=== PATIENT | female | born 1950 | race Caucasian/White ===

== ENCOUNTER 2018-11-12 13:58 | Inpatient (IN) | payer MEDICARE, OTHER ==
[2018-11-12 14:33] LABS: CHLORIDE,CL 104 mEq/L (98-106); SODIUM,NA 140 mEq/L (136-145)
[2018-11-12] MEDS ORDERED: Ondansetron 4 MG/2 ML SDV IV PRN (15:55)
[2018-11-12] MEDS ORDERED: Temazepam 15 MG Cap PO PRN (15:55)
[2018-11-12] MEDS ORDERED: Ibuprofen 200 MG Tab PO PRN (15:55)
[2018-11-12] MEDS ORDERED: ALPRAZolam 0.25 MG Tab PO PRN (15:58)
[2018-11-12] MEDS: Pantoprazole 40 MG Vial IVPUSH SCH (16:28)
[2018-11-12] MEDS: cefTRIAXone 1 GM Vial IVPUSH SCH (16:28)
[2018-11-12] MEDS: Enoxaparin 40 MG/0.4 ML Syringe SUBCUT SCH (16:29)
[2018-11-12] MEDS: Sodium Chloride 0.9% 1,000 ML IV SCH (16:32)
[2018-11-12] MEDS: amLODIPine 2.5 MG Tab PO SCH (20:06)
[2018-11-12] MEDS: Gabapentin 300 MG Cap PO SCH (20:07)
[2018-11-13] MEDS: Sodium Chloride 0.9% 1,000 ML IV SCH ×4 (00:33→23:52)
[2018-11-13] MEDS: Gabapentin 300 MG Cap PO SCH ×3 (07:57→19:57)
[2018-11-13] MEDS: Citalopram 10 MG Tab PO SCH (07:57)
[2018-11-13] MEDS: Pantoprazole 40 MG Vial IVPUSH SCH ×2 (07:59→19:56)
[2018-11-13] MEDS ORDERED: Acetaminophen 325 MG Tab PO PRN (08:25)
[2018-11-13] MEDS: cefTRIAXone 1 GM Vial IVPUSH SCH (15:44)
[2018-11-13] MEDS: Enoxaparin 40 MG/0.4 ML Syringe SUBCUT SCH (15:48)
[2018-11-13] MEDS: amLODIPine 2.5 MG Tab PO SCH (19:57)
--- NOTE | 2018-11-13 20:55 | PCM.PN ---
- General Info Date of Service: 11/13/18 Admission Dx/Problem (Free Text): Pyelonephritis Elevated liver enzymes Functional Status: Reports: Pain Controlled, Tolerating Diet, Ambulating, Urinating (admits to less burning with urination this am. Does continue to have generalized malaise and achiness) - Review of Systems General: Reports: Fever, Weakness, Fatigue, Malaise HEENT: Reports: No Symptoms Pulmonary: Denies: Shortness of Breath, Cough Cardiovascular: Denies: Chest Pain, Edema, Lightheadedness Gastrointestinal: Reports: Difficulty Swallowing, Nausea. Denies: Vomiting Genitourinary: Reports: Frequency, Burning Musculoskeletal: Reports: Back Pain Skin: Reports: No Symptoms Neurological: Reports: Weakness - Patient Data Vitals - Most Recent: Last Vital Signs Temp 98.8 F 11/13/18 20:00 Pulse 76 11/13/18 20:00 Resp 20 11/13/18 20:00 BP 123/61 11/13/18 20:00 Pulse Ox 98 11/13/18 20:00 Weight - Most Recent: 258 lb 12.8 oz I&O - Last 24 Hours: Intake & Output 11/13/18 11/13/18 11/13/18 06:59 14:59 22:59 Intake Total 1000 1000 910 Balance 1000 1000 910 Lab Results Last 24 Hours: Laboratory Results - last 24 hr 11/13/18 11/13/18 Range/Units 07:40 07:40 WBC 4.3 L (5.0-10.0) 10^3/uL RBC 3.17 L (4.00-5.50) 10^6/uL Hgb 9.5 L (12.0-16.0) g/dL Hct 29.9 L (37.0-47.0) % MCV 94.3 H (82.0-94.0) fL MCH 30.0 (27.0-32.0) pg MCHC 31.8 L (33.0-38.0) g/dL RDW Coeff of Ivis 12.8 (11.0-15.0) % Plt Count 254 (150-400) 10^3/uL Neut % (Auto) 64.6 (35-85) % Lymph % (Auto) 17.7 (10-55) % [place] % (Auto) 16.0 (0-16) % Eos % (Auto) 1.2 (0-5) % Baso % (Auto) 0.5 (0-3) % Neut # (Auto) 2.78 (1.80-7.00) 10^3/uL Lymph # (Auto) 0.76 L (1.00-4.80) 10^3/uL [place] # (Auto) 0.69 (0.00-0.80) 10^3/uL Eos # (Auto) 0.05 (0.00-0.45) 10^3/uL Baso # (Auto) 0.02 10^3/uL Sodium 144 (136-145) mEq/L Potassium 3.8 (3.5-5.0) mEq/L Chloride 109 H (98-106) mEq/L Carbon Dioxide 24 (21-32) mmol/L BUN 14 (7-18) mg/dL Creatinine 1.1 H (0.6-1.0) mg/dL Est Cr Clr Drug Dosing 48.26 mL/min Estimated GFR (MDRD) 50 L (>=60) mL/min Glucose 105 H (75-99) mg/dL Calcium 8.6 (8.4-10.1) mg/dL C-Reactive Protein 18.0 H (0.2-0.8) mg/dL [place] Results Last 24 Hours: Microbiology 11/12/18 16:08 Urine Culture - Preliminary Urine, Clean Catch Gram Negative Rods Med Orders - Current: Current Medications Acetaminophen (Tylenol) 650 mg PO Q4H PRN PRN Reason: Fever Alprazolam (Xanax) 0.25 mg PO Q6H PRN PRN Reason: Anxiety Amlodipine Besylate (Norvasc) 5 mg PO BEDTIME [facility] Last Admin: 11/13/18 19:57 Dose: 5 mg Ceftriaxone Sodium (Rocephin) 1 gm IVPUSH 1600 [facility] Last Admin: 11/13/18 15:44 Dose: 1 gm Citalopram Hydrobromide (Celexa) 20 mg PO DAILY [facility] Last Admin: 11/13/18 07:57 Dose: 20 mg Enoxaparin Sodium (Lovenox) 40 mg SUBCUT 1600 [facility] Last Admin: 11/13/18 15:48 Dose: 40 mg Gabapentin (Neurontin) 300 mg PO TID [facility] Last Admin: 11/13/18 19:57 Dose: 300 mg Sodium Chloride (Normal Saline) 1,000 mls @ 125 mls/hr IV ASDIRECTED [facility] Last Admin: 11/13/18 15:55 Dose: 125 mls/hr Ibuprofen (Motrin) 400 mg PO Q6H PRN PRN Reason: Pain (mild 1-3) Ondansetron HCl (Zofran) 8 mg IV Q6H PRN PRN Reason: Nausea/Vomiting Pantoprazole Sodium (Protonix Iv) 40 mg IVPUSH 799,1999 [facility] Last Admin: 11/13/18 19:56 Dose: 40 mg Temazepam (Restoril) 15 mg PO BEDTIME PRN PRN Reason: Sleep - Exam General: Alert, Oriented HEENT: Mucous Membr. Moist/[place] Neck: Supple Lungs: Clear to Auscultation, Normal Respiratory Effort Cardiovascular: Regular Rate, Regular Rhythm GI/Abdominal Exam: Normal Bowel Sounds, Soft, Tender (tender to bilateral lower quadrants) Extremities: Normal Inspection, No Pedal Edema Skin: Warm, Dry Neurological: No New Focal Deficit - Problem List & Annotations (1) Pyelonephritis SNOMED Code(s): 97272726 Code(s): N12 - TUBULO-INTERSTITIAL NEPHRITIS, NOT SPCF ACUTE OR CHRONIC Status: Acute Priority: High Current Visit: Yes (2) Elevated liver enzymes SNOMED Code(s): 465445172 Code(s): R74.8 - ABNORMAL LEVELS OF OTHER SERUM ENZYMES Status: Acute Priority: High Current Visit: Yes - Problem List Review Problem List Initiated/Reviewed/Updated: Yes - My Orders Last 24 Hours: My Active Orders 11/13/18 08:25 Acetaminophen [Tylenol] 650 mg PO Q4H PRN - Assessment Assessment:: Pyelonephritis Elevated liver enzymes - Plan Plan:: Patient admits to feeling somewhat better this am. Notes less burning with urination, not voiding as frequently. Still feels general body aches and stiffness. Mild abdominal discomfort this am, intermittent nausea. Afebrile. WBC 4.3 this am, CRP improved to 18. Initial urine culture shows gram negative rods. Continue IV fluids. Rocephin. Tylenol for generalized malaise as patient notes ibuprofen irritates her stomach. Reevaluate labs in am.
[2018-11-14] MEDS: Pantoprazole 40 MG Vial IVPUSH SCH ×2 (07:28→20:13)
[2018-11-14] MEDS: Gabapentin 300 MG Cap PO SCH ×3 (07:29→20:12)
[2018-11-14] MEDS: Citalopram 10 MG Tab PO SCH (07:29)
[2018-11-14] MEDS: Sodium Chloride 0.9% 1,000 ML IV SCH (07:33)
[2018-11-14] MEDS ORDERED: Sodium Chloride 0.9% 1,000 ML IV SCH (09:28)
--- NOTE | 2018-11-14 13:39 | PCM.PN ---
- General Info Date of Service: 11/14/18 Admission Dx/Problem (Free Text): Pyelonephritis Elevated liver enzymes Subjective Update: Kendal is a 68 year old female who was admitted to the hospital 11/12/2017 with elevated liver enzymes and pyelnephritis. She reports she is feeling much better today. Does continue to feel fatigued and weak. Has been afebrile. Denies any flank pain. Reports overall, feels she is improving. Functional Status: Reports: Pain Controlled, Tolerating Diet, Ambulating, Urinating. Denies: New Symptoms - Review of Systems General: Reports: Weakness. Denies: Fever, Chills Pulmonary: Reports: No Symptoms Cardiovascular: Reports: No Symptoms Gastrointestinal: Denies: Abdominal Pain, Constipation, Diarrhea, Nausea, Vomiting Genitourinary: Denies: Dysuria, Frequency, Burning, Hematuria, Flank Pain Musculoskeletal: Denies: Back Pain Skin: Reports: No Symptoms Neurological: Reports: No Symptoms Psychiatric: Reports: No Symptoms - Patient Data Vitals - Most Recent: Last Vital Signs Temp 97.2 F 11/14/18 11:54 Pulse 60 11/14/18 11:54 Resp 20 11/14/18 11:54 BP 131/58 L 11/14/18 11:54 Pulse Ox 97 11/14/18 11:54 Weight - Most Recent: 258 lb 12.8 oz I&O - Last 24 Hours: Intake & Output 11/13/18 11/14/18 11/14/18 22:59 06:59 14:59 Intake Total 910 994 960 Balance 910 994 960 Lab Results Last 24 Hours: Laboratory Results - last 24 hr 11/14/18 11/14/18 Range/Units 05:11 05:11 WBC 4.2 L (5.0-10.0) 10^3/uL RBC 3.27 L (4.00-5.50) 10^6/uL Hgb 9.9 L (12.0-16.0) g/dL Hct 31.3 L (37.0-47.0) % MCV 95.7 H (82.0-94.0) fL MCH 30.3 (27.0-32.0) pg MCHC 31.6 L (33.0-38.0) g/dL RDW Coeff of Ivis 13.1 (11.0-15.0) % Plt Count 296 (150-400) 10^3/uL Neut % (Auto) 66.1 (35-85) % Lymph % (Auto) 20.7 (10-55) % [place] % (Auto) 11.1 (0-16) % Eos % (Auto) 1.9 (0-5) % Baso % (Auto) 0.2 (0-3) % Neut # (Auto) 2.74 (1.80-7.00) 10^3/uL Lymph # (Auto) 0.86 L (1.00-4.80) 10^3/uL [place] # (Auto) 0.46 (0.00-0.80) 10^3/uL Eos # (Auto) 0.08 (0.00-0.45) 10^3/uL Baso # (Auto) 0.01 10^3/uL Sodium 145 (136-145) mEq/L Potassium 4.0 (3.5-5.0) mEq/L Chloride 108 H (98-106) mEq/L Carbon Dioxide 27 (21-32) mmol/L BUN 14 (7-18) mg/dL Creatinine 1.0 (0.6-1.0) mg/dL Est Cr Clr Drug Dosing 53.09 mL/min Estimated GFR (MDRD) 55 L (>=60) mL/min Glucose 102 H (75-99) mg/dL Calcium 8.6 (8.4-10.1) mg/dL Total Bilirubin 0.2 (0.0-1.0) mg/dL AST 31 (15-37) U/L ALT 84 H (12-78) U/L Alkaline Phosphatase 133 H (46-116) U/L C-Reactive Protein 16.0 H (0.2-0.8) mg/dL Total Protein 6.9 (6.4-8.2) g/dL Albumin 2.5 L (3.4-5.0) g/dL [place] Results Last 24 Hours: Microbiology 11/12/18 16:08 Urine Culture - Final Urine, Clean Catch Escherichia Coli Med Orders - Current: Current Medications Acetaminophen (Tylenol) 650 mg PO Q4H PRN PRN Reason: Fever Last Admin: 11/13/18 23:15 Dose: 650 mg Alprazolam (Xanax) 0.25 mg PO Q6H PRN PRN Reason: Anxiety Last Admin: 11/14/18 10:36 Dose: 0.25 mg Amlodipine Besylate (Norvasc) 5 mg PO BEDTIME [facility] Last Admin: 11/13/18 19:57 Dose: 5 mg Ceftriaxone Sodium (Rocephin) 1 gm IVPUSH 1600 [facility] Last Admin: 11/13/18 15:44 Dose: 1 gm Citalopram Hydrobromide (Celexa) 20 mg PO DAILY [facility] Last Admin: 11/14/18 07:29 Dose: 20 mg Enoxaparin Sodium (Lovenox) 40 mg SUBCUT 1600 [facility] Last Admin: 11/13/18 15:48 Dose: 40 mg Gabapentin (Neurontin) 300 mg PO TID [facility] Last Admin: 11/14/18 07:29 Dose: 300 mg Sodium Chloride (Normal Saline) 1,000 mls @ 70 mls/hr IV ASDIRECTED [facility] Ibuprofen (Motrin) 400 mg PO Q6H PRN PRN Reason: Pain (mild 1-3) Ondansetron HCl (Zofran) 8 mg IV Q6H PRN PRN Reason: Nausea/Vomiting Pantoprazole Sodium (Protonix Iv) 40 mg IVPUSH 0800,2000 [facility] Last Admin: 11/14/18 07:28 Dose: 40 mg Temazepam (Restoril) 15 mg PO BEDTIME PRN PRN Reason: Sleep Discontinued Medications Sodium Chloride (Normal Saline) 1,000 mls @ 125 mls/hr IV ASDIRECTED [facility] Last Admin: 11/14/18 07:33 Dose: 125 mls/hr - Exam General: Alert, Oriented, No Acute Distress Lungs: Clear to Auscultation, Normal Respiratory Effort Cardiovascular: Regular Rate, Regular Rhythm GI/Abdominal Exam: Normal Bowel Sounds, Soft, Non-Tender, No Organomegaly, No Distention, No Abnormal Bruit, No Mass, Pelvis Stable Back Exam: Normal Inspection, Full Range of Motion. No: CVA Tenderness (L), CVA Tenderness (R) Extremities: Normal Inspection, Normal Range of Motion, Non-Tender, No Pedal Edema, Normal Capillary Refill Neurological: No New Focal Deficit Psy/Mental Status: Alert, Normal Affect, Normal Mood - Problem List & Annotations (1) Elevated liver enzymes SNOMED Code(s): 273577904 Code(s): R74.8 - ABNORMAL LEVELS OF OTHER SERUM ENZYMES Status: Acute Priority: High Current Visit: Yes (2) Pyelonephritis SNOMED Code(s): 73081404 Code(s): N12 - TUBULO-INTERSTITIAL NEPHRITIS, NOT SPCF ACUTE OR CHRONIC Status: Acute Priority: High Current Visit: Yes - Problem List Review Problem List Initiated/Reviewed/Updated: Yes - My Orders Last 24 Hours: My Active Orders 11/14/18 09:28 Sodium Chloride 0.9% [Normal Saline] 1,000 ml IV ASDIRECTED - Assessment Assessment:: Pyelonephritis Elevated liver enzymes - Plan Plan:: Continue IV fluids. Decrease rate to 70 mL/hr. Continue IV Rocephin. Final urine culture shows e coli with sensitivity to Rocephin. Reevaluate labs in am. Labs improving. Creat 1.0. CRP continues to decline from 24 on admit to 16 today. Anticipate discharge home tomorrow on oral antibiotics.
[2018-11-14] MEDS: cefTRIAXone 1 GM Vial IVPUSH SCH (16:01)
[2018-11-14] MEDS: Enoxaparin 40 MG/0.4 ML Syringe SUBCUT SCH (16:04)
[2018-11-14] MEDS: amLODIPine 2.5 MG Tab PO SCH (20:13)
[2018-11-15] MEDS: Pantoprazole 40 MG Vial IVPUSH SCH (07:49)
[2018-11-15] MEDS: Citalopram 10 MG Tab PO SCH (07:49)
[2018-11-15] MEDS: Gabapentin 300 MG Cap PO SCH ×2 (07:49→14:09)
[2018-11-15] MEDS ORDERED: cefTRIAXone 1 GM Vial IVPUSH SCH (13:00)
--- NOTE | 2018-11-15 13:38 | PCM.DCSUM1 ---
Discharge Summary - Hospital Course Free Text/Narrative:: Kendal is a pleasant 68 year old female who was admitted to the hospital 2018 for pyelonephritis and elevated liver enzymes. Throughout hospitalization patients malaise and dysuria improved greatly. At time of discharge she had no complaints. Reports back pain and burning with urination were gone. Lab work throughout hospitalization imrpoved. Creatinine elevated to 1.3 at time of admit. Improved to 1.0 at time of discharge. GFR improved from 41 at admit to 55 at discharge. WBC remained normal throughout stay, 5.6 on admit, 4.2 on discharge. CRP was elevated on admit to 24. Gradually decreased during hospitalization to 9.3 at time of discharge. Her urine analysis was positive with culture confirming ecoli. Sensitivity to Rocephin. She was treated with 1 G Rocephin daily x 4 doses. She will be discharged home on Ceftin 250 mg BID x 5 additional days. Her liver enzymes also normalized throughout stay. AST elevated at 72 on admit and normalized to 25 on discharge. ALT elevated to 109 on admit and 68 on discharge. Alk phos elevated to 156 and decreased to 118 at time of discharge. SHe is discharged home in satisfactory condition. She is advised to follow up with per PCP as needed and oncology as scheduled in the upcoming week. She was discharged from the facility in satisfactory condition. Diagnosis: Stroke: No - Discharge Data Discharge Date: 11/15/18 Discharge Disposition: Home, Self-Care 01 Condition: Good - Discharge Diagnosis/Problem(s) (1) Elevated liver enzymes SNOMED Code(s): 890302152 ICD Code: R74.8 - ABNORMAL LEVELS OF OTHER SERUM ENZYMES Status: Acute Priority: High (2) Pyelonephritis SNOMED Code(s): 53634099 ICD Code: N12 - TUBULO-INTERSTITIAL NEPHRITIS, NOT SPCF ACUTE OR CHRONIC Status: Acute Priority: High - Patient Instructions Diet: Usual Diet as Tolerated Activity: As Tolerated Notify Provider of: Fever, Increased Pain, Nausea and/or Vomiting - Discharge Plan *PRESCRIPTION DRUG MONITORING PROGRAM REVIEWED*: Not Applicable *COPY OF PRESCRIPTION DRUG MONITORING REPORT IN PATIENT ABDIEL: Not Applicable Prescriptions/Med Rec: Cefuroxime [Ceftin] 250 mg PO BID 5 Days #10 tab Home Medications: Home Meds ALPRAZolam [Alprazolam] 0.25 mg PO Q6H PRN 12/01/17 [History] Acetaminophen [Tylenol Extra Strength] 500 - 1,000 mg PO Q6H PRN 12/01/17 [ History] Citalopram [Citalopram HBr] 20 mg PO DAILY 12/01/17 [History] Cetirizine [ZyrTEC] 10 mg PO DAILY PRN 12/22/17 [History] amLODIPine Besylate [Amlodipine Besylate] 5 mg PO BEDTIME 01/02/18 [History] Gabapentin [Neurontin] 300 mg PO TID 10/22/18 [History] Ibuprofen 200 - 400 mg PO Q6H PRN 10/22/18 [History] diphenhydrAMINE [Benadryl] 25 mg PO BID PRN 10/22/18 [History] Omeprazole Magnesium [Prilosec Otc] 20 mg PO DAILY 10/23/18 [History] Cefuroxime [Ceftin] 250 mg PO BID 5 Days #10 tab 11/15/18 [Rx] Patient Handouts: Pyelonephritis, Adult - Discharge Summary/Plan Comment DC Time >30 min.: No - General Info Date of Service: 11/15/18 Admission Dx/Problem (Free Text: Pyelonephritis Elevated liver enzymes Subjective Update: At time of discharge patient reports she is feeling much better. SHe offers no complaints. Reports no further urinary symptoms. Has not had any additional back pain. Functional Status: Reports: Pain Controlled, Tolerating Diet. Denies: New Symptoms - Review of Systems General: Reports: No Symptoms. Denies: Fever, Weakness, Fatigue, Chills Pulmonary: Reports: No Symptoms Cardiovascular: Reports: No Symptoms Gastrointestinal: Reports: No Symptoms. Denies: Abdominal Pain, Constipation, Decreased Appetite, Diarrhea, Nausea, Vomiting Genitourinary: Reports: No Symptoms. Denies: Dysuria, Frequency, Burning, Urgency, Incontinence, Hematuria, Flank Pain Musculoskeletal: Denies: Back Pain Skin: Reports: No Symptoms Neurological: Reports: No Symptoms Psychiatric: Reports: No Symptoms - Patient Data Vitals - Most Recent: Last Vital Signs Temp 97.7 F 11/15/18 12:00 Pulse 64 11/15/18 12:00 Resp 20 11/15/18 12:00 BP 135/67 11/15/18 12:00 Pulse Ox 97 11/15/18 12:00 Weight - Most Recent: 258 lb 12.8 oz Lab Results - Last 24 hrs: Laboratory Results - last 24 hr 11/15/18 Range/Units 05:11 Sodium 144 (136-145) mEq/L Potassium 4.0 (3.5-5.0) mEq/L Chloride 107 H (98-106) mEq/L Carbon Dioxide 28 (21-32) mmol/L BUN 17 (7-18) mg/dL Creatinine 1.0 (0.6-1.0) mg/dL Est Cr Clr Drug Dosing 53.09 mL/min Estimated GFR (MDRD) 55 L (>=60) mL/min Glucose 105 H (75-99) mg/dL Calcium 8.5 (8.4-10.1) mg/dL Total Bilirubin 0.2 (0.0-1.0) mg/dL AST 25 (15-37) U/L ALT 68 (12-78) U/L Alkaline Phosphatase 118 H (46-116) U/L C-Reactive Protein 9.3 H (0.2-0.8) mg/dL Total Protein 6.6 (6.4-8.2) g/dL Albumin 2.5 L (3.4-5.0) g/dL DON Results - Last 24 hrs: Microbiology 11/12/18 16:08 Urine Culture - Final Urine, Clean Catch Escherichia Coli Med Orders - Current: Current Medications Acetaminophen (Tylenol) 650 mg PO Q4H PRN PRN Reason: Fever Last Admin: 11/13/18 23:15 Dose: 650 mg Alprazolam (Xanax) 0.25 mg PO Q6H PRN PRN Reason: Anxiety Last Admin: 11/14/18 10:36 Dose: 0.25 mg Amlodipine Besylate (Norvasc) 5 mg PO BEDTIME [facility] Last Admin: 11/14/18 20:13 Dose: 5 mg Ceftriaxone Sodium (Rocephin) 1 gm IVPUSH 1600 [facility] Last Admin: 11/15/18 12:19 Dose: 1 gm Citalopram Hydrobromide (Celexa) 20 mg PO DAILY [facility] Last Admin: 11/15/18 07:49 Dose: 20 mg Enoxaparin Sodium (Lovenox) 40 mg SUBCUT 1600 [facility] Last Admin: 11/14/18 16:04 Dose: 40 mg Gabapentin (Neurontin) 300 mg PO TID [facility] Last Admin: 11/15/18 07:49 Dose: 300 mg Ibuprofen (Motrin) 400 mg PO Q6H PRN PRN Reason: Pain (mild 1-3) Ondansetron HCl (Zofran) 8 mg IV Q6H PRN PRN Reason: Nausea/Vomiting Pantoprazole Sodium (Protonix Iv) 40 mg IVPUSH 0800,2000 [facility] Last Admin: 11/15/18 07:49 Dose: 40 mg Temazepam (Restoril) 15 mg PO BEDTIME PRN PRN Reason: Sleep Discontinued Medications Ceftriaxone Sodium (Rocephin) 1 gm IVPUSH 1600 [facility] Last Admin: 11/14/18 16:01 Dose: 1 gm Sodium Chloride (Normal Saline) 1,000 mls @ 125 mls/hr IV ASDIRECTED [facility] Last Admin: 11/14/18 07:33 Dose: 125 mls/hr Sodium Chloride (Normal Saline) 1,000 mls @ 70 mls/hr IV ASDIRECTED [facility] Last Admin: 11/14/18 20:18 Dose: 70 mls/hr - Exam General: Reports: Alert, Oriented, No Acute Distress Neck: Reports: Supple Lungs: Reports: Clear to Auscultation, Normal Respiratory Effort Cardiovascular: Reports: Regular Rate, Regular Rhythm GI/Abdominal Exam: Normal Bowel Sounds, Soft, Non-Tender, No Organomegaly, No Distention, No Abnormal Bruit, No Mass, Pelvis Stable Back Exam: Reports: Normal Inspection, Full Range of Motion. Denies: CVA Tenderness (L), CVA Tenderness (R) Extremities: Normal Inspection, Normal Range of Motion, Non-Tender, No Pedal Edema, Normal Capillary Refill Skin: Reports: Warm, Dry, Intact Neurological: Reports: No New Focal Deficit Psy/Mental Status: Reports: Alert, Normal Affect, Normal Mood
== END 2018-11-15 14:15 | disposition home or self-care (01) | DRG 690 ==
LOC: CC.MS 13:58 → CC.FCMC 13:58 → UNDOADMIN 15:02 → CC.MS 15:02
PROVIDERS: ADMIT Family Medicine; ATTEND Family Medicine
DX: N39.0 Urinary tract infection, site not specified (principal); N12 Tubulo-interstitial nephritis, not specified as acute or chronic; B96.20 Unspecified Escherichia coli [E. coli] as the cause of diseases classified elsewhere; E78.5 Hyperlipidemia, unspecified; I10 Essential (primary) hypertension; R74.8 Abnormal levels of other serum enzymes; E89.0 Postprocedural hypothyroidism; E66.9 Obesity, unspecified; Z68.38 Body mass index [BMI] 38.0-38.9, adult; Z90.710 Acquired absence of both cervix and uterus; Z90.49 Acquired absence of other specified parts of digestive tract; Z87.891 Personal history of nicotine dependence; Z87.440 Personal history of urinary (tract) infections; Z88.6 Allergy status to analgesic agent; R06.02 Shortness of breath; R51 Headache; R09.81 Nasal congestion; R53.83 Other fatigue; Z88.8 Allergy status to other drugs, medicaments and biological substances; R19.7 Diarrhea, unspecified; Z79.899 Other long term (current) drug therapy
CPT/HCPCS: 36415; 80048; 80053; 81001; 82150; 85025; 86140; 87086; 87088; 87186; 87804; A9270-GY; C9113; J0696; J1650; J7030

== ENCOUNTER → 2019-01-15 | Day surgery (SDC) | payer MEDICARE, OTHER ==
[~2019-01-15] MED LIST: Lactated Ringers 1,000 ML IV SCH; Propofol 200 MG/20 ML SDV IV ONE
--- NOTE | 2019-01-15 13:13 | OR ---
DATE OF OPERATION: 01/15/2019 PREOPERATIVE DIAGNOSIS: EPIGASTRIC PAIN. POSTOPERATIVE DIAGNOSIS: EPIGASTRIC PAIN. SURGEON: Beto Breaux MD PROCEDURE: EGD WITH BIOPSIES X3, NICK. ANESTHESIA: MAC via SWING RIDE OPERATOR. COMPLICATIONS: None. SPECIMEN: 1. Duodenal bulb biopsy x1. 2. Antral biopsy x2. 3. Antral NICK. FINDINGS: 1. Full-length EGD. 2. Mild duodenal thickening, possible heterotopic gastric tissue. 3. Minimal antral gastritis. 4. Small hiatal hernia with spontaneous GERD. No distal esophagitis, stricturing, ulceration, or Richardson's changes. RECOMMENDATIONS: Ongoing medical treatment. INDICATIONS: The patient is a pleasant 68-year-old with a history of breast CA. She presented with worsening epigastric pain typical for peptic ulcer disease. We elected to proceed with diagnostic EGD. DESCRIPTION OF PROCEDURE: The patient was prepped and draped, placed in the left lateral decubitus position. A lubricated Olympus gastroscope was inserted over a bit and advanced to cricopharyngeus area and easily intubated in the patient's esophagus with swallow. Esophageal lining was benign in its entire course. The Z-line was crisp at 36 cm. There was a small hiatal hernia present with spontaneous reflux, but no distal esophagitis, stricturing, ulceration, or Richardson's changes. The scope was advanced into the stomach, through the pylorus, into the second portion of the duodenum. The second portion of duodenum was benign. The bulb had some flat and irregular thickened mucosa, possibly representing some heterotopic gastric tissue. It does not appear worrisome. We did a biopsy for confirmation. The scope was brought back into the stomach and retroflexed. The upper fundus and cardia were completely unremarkable. A small hernia could be visualized from below. Upon straightening, the rest of the fundus was benign. The antrum showed a very minimal amount of erythema, possibly representing some very mild gastritis. We did do 2 biopsies and a NICK. No other masses or lesions were seen. Air was suctioned, scope removed without complication. FLORI/LYNDON /[id number]
== END ==
LOC: CC.SDS 10:21
PROVIDERS: ATTEND Family Medicine
DX: K29.50 Unspecified chronic gastritis without bleeding (principal); K31.89 Other diseases of stomach and duodenum; K44.9 Diaphragmatic hernia without obstruction or gangrene; I10 Essential (primary) hypertension; E66.9 Obesity, unspecified; K21.9 Gastro-esophageal reflux disease without esophagitis; F41.9 Anxiety disorder, unspecified
CPT/HCPCS: 87081; J2704; J7120

== ENCOUNTER 2020-07-08 10:53 | Emergency (ER) | payer MEDICARE, OTHER ==
[2020-07-08] MEDS ORDERED: Sodium Chloride 0.9% 10 ML Syringe FLUSH PRN (11:11)
--- NOTE | 2020-07-08 11:20 | EDM.PDOC ---
ED HPI GENERAL MEDICAL PROBLEM - General Chief Complaint: General Stated Complaint: weakness, positive COVID Time Seen by Provider: 07/08/20 11:05 Source of Information: Reports: Patient, Family History Limitations: Reports: No Limitations - History of Present Illness INITIAL COMMENTS - FREE TEXT/NARRATIVE: Patient to the emergency department where she advised that she is feeling more weak and ill since being diagnosed with COVID a week ago. The patient also advised that on this past Friday she did have some black and tarry stools. She advised that she had her case discussed with Kat Rodriguez and Carafate was prescribed. She advises that her stools are not as dark as they were. The patient also advised she does have chronic shortness of breath as well as she has shortness of breath now, she advised that her shortness of breath is not much more worse than normal. She does advise that her cough is continued and thinks that her cough is getting worse. The patient denies any ear, nose, or throat symptoms she denies any chest pain, pressure or heaviness. She advises that she has not been having the upper epigastric pain as she has been having. She denies any nausea no vomiting. She advises that she has not been eating and drinking well for the last several days and has lost about 10 pounds. She denies any UTI type symptoms. She does advise she still has fevers off and on Onset: Gradual Duration: Week(s): (1) Location: Reports: Chest Quality: Reports: Ache Severity: Moderate Improves with: Reports: None Worsens with: Reports: None Associated Symptoms: Reports: Cough, Fever/Chills, Shortness of Breath, Weakness. 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 (see below) (As above) - Related Data Allergies Allergy/AdvReac Type Severity Reaction Status Date / Time adhesive tape Allergy Rash Verified 07/08/20 11:07 loracarbef [From Lorabid] Allergy Rash Verified 07/08/20 11:07 morphine Allergy Rash Verified 07/08/20 11:07 Home Meds: Home Meds ALPRAZolam [Alprazolam] 0.25 mg PO Q6H PRN 12/01/17 [History] Acetaminophen [Tylenol Extra Strength] 500 - 1,000 mg PO Q6H PRN 12/01/17 [History] Cetirizine [ZyrTEC] 10 mg PO DAILY PRN 12/22/17 [History] amLODIPine Besylate [Amlodipine Besylate] 5 mg PO BEDTIME 01/02/18 [History] Ibuprofen 200 - 400 mg PO Q6H PRN 10/22/18 [History] diphenhydrAMINE [Benadryl] 25 mg PO BID PRN 10/22/18 [History] Pantoprazole [ProTONIX] 40 mg PO DAILY 01/14/19 [History] Sucralfate [Carafate] 1 gm PO TID 01/14/19 [History] Past Medical History Oncologic (Cancer) History: Reports: Breast - Past Surgical History Female Surgical History: Reports: Hysterectomy Oncologic Surgical History: Reports: Mastectomy, Other (See Below) Other Oncologic Surgeries/Procedures: 3 nodes removed Social & Family History - Family History Family Medical History: Noncontributory - Caffeine Use Caffeine Use: Reports: Coffee, Soda ED ROS GENERAL - Review of Systems Review Of Systems: See Below Constitutional: Reports: Fever, Chills, Weakness HEENT: Denies: Ear Pain, Nose Pain, Throat Pain Respiratory: Reports: Shortness of Breath, Cough Cardiovascular: Reports: No Symptoms. Denies: Chest Pain, Edema GI/Abdominal: Reports: Abdominal Pain, Black Stool, Decreased Appetite, Nausea. Denies: Bloody Stool, Vomiting Musculoskeletal: Denies: Neck Pain, Back Pain Skin: Reports: No Symptoms. Denies: Rash, Erythema Neurological: Reports: No Symptoms. Denies: Dizziness, Headache Psychiatric: Reports: No Symptoms ED EXAM, GENERAL - Physical Exam Exam: See Below Exam Limited By: No Limitations General Appearance: Alert, WD/WN, No Apparent Distress Ears: Normal External Exam, Normal Canal, Normal TMs Nose: Normal Inspection, Normal Mucosa Throat/Mouth: Normal Inspection, Normal Lips, Normal Teeth, Normal Voice, No Airway Compromise Head: Atraumatic, Normocephalic Neck: Normal Inspection, Supple, Non-Tender, Full Range of Motion Respiratory/Chest: No Respiratory Distress, Normal Breath Sounds, Chest Non- Tender, Other (Has decreased lung sounds in the bases) Cardiovascular: Normal Peripheral Pulses, Regular Rate, Rhythm Peripheral Pulses: 2+: Radial (L), Radial (R) GI/Abdominal: Soft, Non-Tender, No Distention Back Exam: Normal Inspection, Full Range of Motion Extremities: Normal Inspection, Normal Range of Motion, Non-Tender, Normal Capillary Refill Neurological: Alert, Oriented, Normal Cognition, Normal Gait, No Motor/Sensory Deficits Psychiatric: Normal Affect, Normal Mood Skin Exam: Warm, Dry, Intact, Pallor Course - Vital Signs Text/Narrative:: 1145 the patient has been evaluated in the emergency department, CBC is normal see results for details. Chest x-ray shows an increased density in the left lower lobe which I suspect could be an infiltrate versus breast shadowing. However this appears to be new since her previous chest x-ray. With a physical assessment increasing coughing fever and COVID this could be a pneumonia. stool hemacult completed, was black stool and positive for blood. The patient has been given Rocephin 2 g IV. We are currently waiting on the rest of the lab work to make a disposition. 1200 still waiting on the official reading on the chest x-ray, I will have went ahead and added Zithromax 500 mg IV and have given the patient 1 L bolus of normal saline as her lactic acid comes back at 2.7 CRP is over 7, zithromax 500mg IVPB ordered, K+ is 3.2 and po KCL 40meq given, the pt has had protonix 40mg po at home this am. 1213 I did speak to the patient's daughter Keily who is actually the family service caseworker patient care services at this facility and discussed with her the results of her labs and x-rays. She did advise that if the patient would need to be transferred that she would prefer the patient go to [facility] in [place]. I did call and speak to the dry transfer worker Rianna, who has been in com munication with the hospitalist Dr. Thompson and has asked for consult with Dr.n Moffett, once the physicians get on the phone the coordinator will get back in touch with me to discuss disposition. [address] Moffett and the gastro physician, the patient will be accepted to [facility], the pie filler advised to go ahead and give 80 mg of Protonix IV now. The patient will be admitted to the COVID unit with gastroenterology following. I have spoke with the patient's daughter and advised her of the need for the transfer and she agrees. I have spoke with the patient and advised her of everything and the need to transfer she also agrees. EMS has been called, see the nursing notes for details of the transfer The risk and benefits answer was told to the patient, the risk being worsening condition, motor vehicle accident, and . The benefits is evaluation treatment at the COVID unit by dermatology as well as evaluation by gastroenterology for her upper GI bleed which though services are not available at [place]. Last Recorded V/S: Last Vital Signs Temp 36.9 C 07/08/20 12:29 Pulse 75 07/08/20 12:29 Resp 16 07/08/20 12:29 BP 147/78 H 07/08/20 12:29 Pulse Ox 95 07/08/20 12:29 - Orders/Labs/Meds Orders: Active Orders 24 hr Category Date Time Status Overnight Pulse Oximetry [RC] Click to Edit Care 07/08/20 11:11 Active Peripheral IV Care [RC] . DIRECTED Care 07/08/20 11:12 Active CXR [Chest 2V] [CR] Stat Exams 07/08/20 10:55 Taken CULTURE BLOOD [BC] Stat Lab 07/08/20 11:21 Received CULTURE BLOOD [BC] Stat Lab 07/08/20 11:32 Received Azithromycin [Zithromax] 500 mg Med 07/08/20 11:58 Active Sodium Chloride 0.9% [Normal Saline] 250 ml IV ONETIME Sodium Chloride 0.9% [Normal Saline] 1,000 ml Med 07/08/20 12:02 Active IV .BOLUS Sodium Chloride 0.9% [Normal Saline] 1,000 ml Med 07/08/20 11:15 Active IV ASDIRECTED Sodium Chloride 0.9% [Saline Flush] Med 07/08/20 11:11 Active 10 ml FLUSH ASDIRECTED PRN Blood Culture x2 Reflex Set [OM.PC] Stat Oth 07/08/20 11:11 Ordered Peripheral IV Insertion Adult [OM.PC] Routine Oth 07/08/20 11:11 Ordered Pulse Oximetry Continuous Monitoring [OM.PC] Routine Oth 07/08/20 11:11 Ordered Medication Orders Sodium Chloride (Normal Saline) 1,000 mls @ 75 mls/hr IV ASDIRECTED SANGEETA Last Admin: 07/08/20 11:29 Dose: 75 mls/hr Documented by: TERESITA Azithromycin 500 mg/ Sodium (Chloride) 250 mls @ 250 mls/hr IV ONETIME ONE Stop: 07/08/20 12:57 Last Admin: 07/08/20 12:15 Dose: 250 mls/hr Documented by: TERESITA Sodium Chloride (Normal Saline) 1,000 mls @ 999 mls/hr IV .BOLUS ONE Stop: 07/08/20 13:02 Last Admin: 07/08/20 12:25 Dose: 999 mls/hr Documented by: TERESITA Sodium Chloride (Saline Flush) 10 ml FLUSH ASDIRECTED PRN PRN Reason: Keep Vein Open Labs: Laboratory Tests 07/08/20 07/08/20 07/08/20 Range/Units 11:21 11:21 11:21 WBC 6.0 (5.0-10.0) 10^3/uL RBC 4.33 (4.00-5.50) 10^6/uL Hgb 13.0 (12.0-16.0) g/dL Hct 39.3 (37.0-47.0) % MCV 90.8 (82.0-94.0) fL MCH 30.0 (27.0-32.0) pg MCHC 33.1 (33.0-38.0) g/dL RDW Coeff of Ivis 13.4 (11.0-15.0) % Plt Count 212 (150-400) 10^3/uL Neut % (Auto) 76.0 (35-85) % Lymph % (Auto) 16.7 (10-55) % Garvin % (Auto) 7.1 (0-16) % Eos % (Auto) 0.2 (0-5) % Baso % (Auto) 0 (0-3) % Neut # (Auto) 4.59 (1.80-7.00) 10^3/uL Lymph # (Auto) 1.01 (1.00-4.80) 10^3/uL Garvin # (Auto) 0.43 (0.00-0.80) 10^3/uL Eos # (Auto) 0.01 (0.00-0.45) 10^3/uL Baso # (Auto) 0.00 10^3/uL PT (9.7-12.3) SEC INR (0.92-1.18) APTT (23.2-32.3) SEC Sodium 140 (136-145) mEq/L Potassium 3.2 L (3.5-5.0) mEq/L Chloride 102 (98-106) mEq/L Carbon Dioxide 26 (21-32) mmol/L BUN 17 (7-18) mg/dL Creatinine 1.2 H (0.6-1.0) mg/dL Est Cr Clr Drug Dosing 43.03 mL/min Estimated GFR (MDRD) 45 L (>=60) mL/min Glucose 136 H D (75-99) mg/dL Lactic Acid 2.6 H (0.4-2.0) mmol/L Calcium 8.4 (8.4-10.1) mg/dL Total Bilirubin 0.5 (0.0-1.0) mg/dL AST 69 H (15-37) U/L ALT 108 H (12-78) U/L Alkaline Phosphatase 71 (46-116) U/L C-Reactive Protein 7.2 H (0.2-0.8) mg/dL Total Protein 7.8 (6.4-8.2) g/dL Albumin 3.3 L (3.4-5.0) g/dL Urine Color (YELLOW) Urine Appearance (CLEAR) Urine pH (4.5-8.0) Ur Specific [place] (1.003-1.020) Urine Protein (NEGATIVE) mg/dL Urine Glucose (UA) (NEGATIVE) mg/dL Urine Ketones (NEGATIVE) mg/dL Urine Occult Blood (NEGATIVE) Urine Nitrite (NEGATIVE) Urine Bilirubin (NEGATIVE) Urine Urobilinogen (0.2-1.0) EU/dL Ur Leukocyte Esterase (NEGATIVE) Urine RBC (0-5) /HPF Urine WBC (0-5) /HPF Ur Squamous Epith Cells (NOT SEEN) /HPF Urine Bacteria (NOT SEEN) /HPF Urine Mucus (NOT SEEN) /HPF 07/08/20 07/08/20 Range/Units 11:21 11:43 WBC (5.0-10.0) 10^3/uL RBC (4.00-5.50) 10^6/uL Hgb (12.0-16.0) g/dL Hct (37.0-47.0) % MCV (82.0-94.0) fL MCH (27.0-32.0) pg MCHC (33.0-38.0) g/dL RDW Coeff of Ivis (11.0-15.0) % Plt Count (150-400) 10^3/uL Neut % (Auto) (35-85) % Lymph % (Auto) (10-55) % Garvin % (Auto) (0-16) % Eos % (Auto) (0-5) % Baso % (Auto) (0-3) % Neut # (Auto) (1.80-7.00) 10^3/uL Lymph # (Auto) (1.00-4.80) 10^3/uL Garvin # (Auto) (0.00-0.80) 10^3/uL Eos # (Auto) (0.00-0.45) 10^3/uL Baso # (Auto) 10^3/uL PT 10.0 (9.7-12.3) SEC INR 0.99 (0.92-1.18) APTT 27.0 (23.2-32.3) SEC Sodium (136-145) mEq/L Potassium (3.5-5.0) mEq/L Chloride (98-106) mEq/L Carbon Dioxide (21-32) mmol/L BUN (7-18) mg/dL Creatinine (0.6-1.0) mg/dL Est Cr Clr Drug Dosing mL/min Estimated GFR (MDRD) (>=60) mL/min Glucose (75-99) mg/dL Lactic Acid (0.4-2.0) mmol/L Calcium (8.4-10.1) mg/dL Total Bilirubin (0.0-1.0) mg/dL AST (15-37) U/L ALT (12-78) U/L Alkaline Phosphatase (46-116) U/L C-Reactive Protein (0.2-0.8) mg/dL Total Protein (6.4-8.2) g/dL Albumin (3.4-5.0) g/dL Urine Color Yellow (YELLOW) Urine Appearance Slightly cloudy (CLEAR) Urine pH 6.5 (4.5-8.0) Ur Specific [place] 1.020 (1.003-1.020) Urine Protein 30 H (NEGATIVE) mg/dL Urine Glucose (UA) Negative (NEGATIVE) mg/dL Urine Ketones Negative (NEGATIVE) mg/dL Urine Occult Blood Moderate H (NEGATIVE) Urine Nitrite Negative (NEGATIVE) Urine Bilirubin Negative (NEGATIVE) Urine Urobilinogen 0.2 (0.2-1.0) EU/dL Ur Leukocyte Esterase Negative (NEGATIVE) Urine RBC 0-5 (0-5) /HPF Urine WBC 0-5 (0-5) /HPF Ur Squamous Epith Cells Many H (NOT SEEN) /HPF Urine Bacteria Not seen (NOT SEEN) /HPF Urine Mucus Rare (NOT SEEN) /HPF Meds: Medications Generic Name Dose Route Start Last Admin Trade Name Freq PRN Reason Stop Dose Admin Sodium Chloride 1,000 mls @ 75 mls/hr 07/08/20 11:15 07/08/20 11:29 Normal Saline IV 75 mls/hr ASDIRECTED SANGEETA Administration Azithromycin 500 mg/ Sodium 250 mls @ 250 mls/hr 07/08/20 11:58 07/08/20 12:15 Chloride IV 07/08/20 12:57 250 mls/hr ONETIME ONE Administration Sodium Chloride 1,000 mls @ 999 mls/hr 07/08/20 12:02 07/08/20 12:25 Normal Saline IV 07/08/20 13:02 999 mls/hr .BOLUS ONE Administration Sodium Chloride 10 ml 07/08/20 11:11 Saline Flush FLUSH ASDIRECTED PRN Keep Vein Open Discontinued Medications Generic Name Dose Route Start Last Admin Trade Name [place] PRN Reason Stop Dose Admin Azithromycin Confirm 07/08/20 11:43 07/08/20 12:17 Zithromax Administered 07/08/20 11:44 Not Given Dose 500 mg .ROUTE .STK-MED ONE Ceftriaxone Sodium 2 gm 07/08/20 11:13 07/08/20 11:32 Rocephin IVPUSH 07/08/20 11:14 2 gm ONETIME ONE Administration Sodium Chloride Confirm 07/08/20 12:19 07/08/20 12:17 Normal Saline Administered 07/08/20 12:20 Not Given Dose 250 mls @ as directed .ROUTE .STK-MED ONE Pantoprazole Sodium 80 mg 07/08/20 12:35 Protonix Iv IVPUSH 07/08/20 12:36 ONETIME ONE Potassium Chloride 40 meq 07/08/20 12:02 07/08/20 12:10 Klor-Con 10 PO 07/08/20 12:03 40 meq ONETIME ONE Administration Departure - Departure Time of Disposition: 12:53 Disposition: DC/Tfer to Acute Hospital 02 Condition: Good Clinical Impression: Left lower lobe pneumonia, COVID-19, Lactic acidosis, Upper GI bleed, Renal insufficiency - Discharge Information *PRESCRIPTION DRUG MONITORING PROGRAM REVIEWED*: Not Applicable *COPY OF PRESCRIPTION DRUG MONITORING REPORT IN PATIENT ABDIEL: Not Applicable Referrals: Beto Breaux MD [Primary Care Provider] - Forms: ED Department Discharge Sepsis Event Note (ED) - Focused Exam Vital Signs: Vital Signs Temp Pulse Resp BP Pulse Ox 07/08/20 12:29 36.9 C 75 16 147/78 H 95 07/08/20 11:59 37.4 C 75 16 140/73 93 L 07/08/20 11:30 36.9 C 74 16 132/88 94 L 07/08/20 11:00 36.5 C 84 18 141/79 H 94 L - Problem List & Annotations (1) COVID-19 SNOMED Code(s): 743743797 Code(s): U07.1 - COVID-19 Status: Acute Priority: High Current Visit: Yes (2) Lactic acidosis SNOMED Code(s): 08641240 Code(s): E87.2 - ACIDOSIS Status: Acute Priority: High Current Visit: Yes (3) Left lower lobe pneumonia SNOMED Code(s): 471521019 Code(s): J18.9 - PNEUMONIA, UNSPECIFIED ORGANISM Status: Acute Priority: High Current Visit: Yes Qualifiers: Pneumonia type: due to unspecified organism Qualified Code(s): J18.9 - Pneumonia, unspecified organism (4) Renal insufficiency SNOMED Code(s): 019583810, 978244946 Code(s): N28.9 - DISORDER OF KIDNEY AND URETER, UNSPECIFIED Status: Acute Priority: Medium Current Visit: Yes (5) Upper GI bleed SNOMED Code(s): 91389236 Code(s): K92.2 - GASTROINTESTINAL HEMORRHAGE, UNSPECIFIED Status: Acute Priority: High Current Visit: Yes - Problem List Review Problem List Initiated/Reviewed/Updated: Yes - My Orders Last 24 Hours: My Active Orders 07/08/20 10:55 CXR [Chest 2V] [CR] Stat 07/08/20 11:11 Overnight Pulse Oximetry [RC] Click to Edit Sodium Chloride 0.9% [Saline Flush] 10 ml FLUSH ASDIRECTED PRN Blood Culture x2 Reflex Set [OM.PC] Stat Peripheral IV Insertion Adult [OM.PC] Routine Pulse Oximetry Continuous Monitoring [OM.PC] Routine 07/08/20 11:12 Peripheral IV Care [RC] . DIRECTED 07/08/20 11:15 Sodium Chloride 0.9% [Normal Saline] 1,000 ml IV ASDIRECTED 07/08/20 11:21 CULTURE BLOOD [BC] Stat 07/08/20 11:32 CULTURE BLOOD [BC] Stat 07/08/20 11:58 Azithromycin [Zithromax] 500 mg Sodium Chloride 0.9% [Normal Saline] 250 ml IV ONETIME 07/08/20 12:02 Sodium Chloride 0.9% [Normal Saline] 1,000 ml IV .BOLUS - Assessment/Plan Last 24 Hours: My Active Orders 07/08/20 10:55 CXR [Chest 2V] [CR] Stat 07/08/20 11:11 Overnight Pulse Oximetry [RC] Click to Edit Sodium Chloride 0.9% [Saline Flush] 10 ml FLUSH ASDIRECTED PRN Blood Culture x2 Reflex Set [OM.PC] Stat Peripheral IV Insertion Adult [OM.PC] Routine Pulse Oximetry Continuous Monitoring [OM.PC] Routine 07/08/20 11:12 Peripheral IV Care [RC] . DIRECTED 07/08/20 11:15 Sodium Chloride 0.9% [Normal Saline] 1,000 ml IV ASDIRECTED 07/08/20 11:21 CULTURE BLOOD [BC] Stat 07/08/20 11:32 CULTURE BLOOD [BC] Stat 07/08/20 11:58 Azithromycin [Zithromax] 500 mg Sodium Chloride 0.9% [Normal Saline] 250 ml IV ONETIME 07/08/20 12:02 Sodium Chloride 0.9% [Normal Saline] 1,000 ml IV .BOLUS Plan: The patient's past medical history, past surgical history, past social history and past family medical history is reviewed see the nursing notes for details
[2020-07-08] MEDS: Sodium Chloride 0.9% 1,000 ML IV SCH (11:29)
[2020-07-08] MEDS: cefTRIAXone 2 GM Vial IVPUSH ONE (11:32)
[2020-07-08] MEDS: Potassium Chloride 10 MEQ Tab.ER PO ONE (12:10)
[2020-07-08] MEDS: Azithromycin 500 MG in Sodium Chloride 0.9% 250 ML IV ONE (12:15)
[2020-07-08] MEDS: Sodium Chloride 0.9% 250 ML ONE (12:17)
[2020-07-08] MEDS: Azithromycin 500 MG Vial ONE (12:17)
[2020-07-08] MEDS: Sodium Chloride 0.9% 1,000 ML IV ONE (12:25)
[2020-07-08] MEDS: Pantoprazole 40 MG Vial IVPUSH ONE (12:47)
== END 2020-07-08 13:45 ==
LOC: CC.ED 10:53
DX: U07.1 COVID-19 (principal); J12.89 Other viral pneumonia; E87.2 Acidosis; K92.2 Gastrointestinal hemorrhage, unspecified; N28.9 Disorder of kidney and ureter, unspecified; Z88.5 Allergy status to narcotic agent; Z90.710 Acquired absence of both cervix and uterus; Z91.09 Other allergy status, other than to drugs and biological substances; Z79.899 Other long term (current) drug therapy
CPT/HCPCS: 36415; 71046; 80053; 81001; 82270; 83605; 85025; 85610; 85730; 86140; 87040; 93005; 96361; 96365; 96375; 99284; 99285-25; A9270-GY; C9113; J0456; J0696; J7030; J7050

== ENCOUNTER → 2024-03-16 | Day surgery (SDC) | payer MEDICARE, OTHER ==
[2024-03-16] MEDS: Lidocaine 1% 30 ML SDV INJECT ONE ×2 (15:08→15:40)
== END ==
LOC: CC.SDS 07:49
PROVIDERS: ATTEND Family Medicine
DX: I83.813 Varicose veins of bilateral lower extremities with pain (principal); I10 Essential (primary) hypertension; E78.5 Hyperlipidemia, unspecified; K21.9 Gastro-esophageal reflux disease without esophagitis; E66.9 Obesity, unspecified; F41.9 Anxiety disorder, unspecified; Z79.899 Other long term (current) drug therapy; Z87.891 Personal history of nicotine dependence; Z88.5 Allergy status to narcotic agent
CPT/HCPCS: 36482; C1888; J3490

== ENCOUNTER → 2024-10-12 | Day surgery (SDC) | payer MEDICARE, OTHER ==
[~2024-10-12] MED LIST changes: -Lactated Ringers 1,000 ML IV SCH; +Lidocaine 1% 5 ML VIAL ONE; -Propofol 200 MG/20 ML SDV IV ONE
== END ==
LOC: CC.SDS 11:27
PROVIDERS: ATTEND Family Medicine
DX: I83.819 Varicose veins of unspecified lower extremity with pain (principal); L82.1 Other seborrheic keratosis; L97.929 Non-pressure chronic ulcer of unspecified part of left lower leg with unspecified severity; M17.9 Osteoarthritis of knee, unspecified; Z53.8 Procedure and treatment not carried out for other reasons; I10 Essential (primary) hypertension; R60.0 Localized edema; K21.9 Gastro-esophageal reflux disease without esophagitis; E78.5 Hyperlipidemia, unspecified; Z79.899 Other long term (current) drug therapy
CPT/HCPCS: C1888